=== PATIENT | male | born 1970 | race African-American/Black ===

== ENCOUNTER 2017-01-27 16:53 | Emergency (ER) | payer OTHER ==
[~2017-01-27] VITALS: Ht 177.8 cm; Wt 113.4 kg
[~2017-01-27 16:53] MED LIST: IBUPROFEN 600600 M1; OMEPRAZOLE40 MG PO; PREDNISONE 10 M10 M1 PO; PROAIR HFA8.5 GM IH; ZOFRAN ODT4 MG PO
[2017-01-27] MEDS ORDERED: ADVAIR 250-501 EACH INH (17:05)
[2017-01-27] MEDS ORDERED: VENTOLIN HFA 1818 GM INH (17:05)
[2017-01-27] MEDS ORDERED: SINGULAIR 10 MG10 M1 PO (17:05)
[2017-01-27] MEDS ORDERED: ASPIR 8181 MG PO (17:06)
[2017-01-27] MEDS ORDERED: POTASSIUM20 PO (17:06)
[2017-01-27] MEDS ORDERED: COZAAR 50 MG TA50 M2 PO (17:06)
[2017-01-27] MEDS ORDERED: CARVEDILOL12.5 MG PO (17:06)
[2017-01-27] MEDS ORDERED: LASIX 40 MG TAB40 M2 PO (17:06)
[2017-01-27] MEDS ORDERED: PREDNISONE 20 M20 MG PO (17:34)
[2017-01-27] MEDS ORDERED: ADVAIR HFA115 MCG/21 INH (17:34)
[2017-01-27] MEDS ORDERED: ALBUTEROL2.5 MG/0.5 INH (17:34)
[2017-01-27] MEDS ORDERED: PROVENTIL HFA6.7 G1 INH (17:34)
[2017-01-27 18:00] VITALS: BP 181/125
== END 2017-01-27 18:15 | disposition home or self-care (01) ==
LOC: ER 16:53
DX: J45.901 Unspecified asthma with (acute) exacerbation (principal); F10.99 Alcohol use, unspecified with unspecified alcohol-induced disorder; I10 Essential (primary) hypertension; Z88.0 Allergy status to penicillin

== ENCOUNTER 2017-03-10 11:19 | Emergency (ER) | payer OTHER ==
[~2017-03-10] VITALS: Ht 177.8 cm; Wt 108.9 kg
--- NOTE | ~2017-03-10 | EKG ---
[place] [address] [facility] [place] [address] ELECTROCARDIOGRAM REPORT Name: MARIO DOYLE Room #: ARIELA Lynch#: [id number] Admission: 03/10/17 Attend Phys: Discharge: 03/10/17 Date of : 74 Report #: [id number] THIS REPORT FOR: //name// [facility] ED Test Date: 2017-03-10 Test Time: 11:24:40 Pat Name: MARIO DOYLE Department: Room: Gender: M [employer]: MZOOK : 1970 Requested By: Cindy Guerin Order Number: [id number] MD: Aleksandr Gray Measurements Intervals Pinson Rate: 79 P: 74 IA: 203 QRS: -10 QRSD: 100 T: 147 QT: 397 QTc: 456 Interpretive Statements Sinus arrhythmia Ventricular premature complex Borderline prolonged IA interval Probable left atrial enlargement Left ventricular hypertrophy Electronically Signed On 03-15-2017 7:55:12 CDT by Aleksandr Gray [email or web address] <ELECTRONICALLY SIGNED> By: Aleksandr Gray MD 03/15/17 [id number] Aleksandr Gray MD /CHRISTINE
[~2017-03-10 11:19] MED LIST changes: +ADVAIR 250-501 EACH INH; +ADVAIR HFA115 MCG/21 INH; +ALBUTEROL2.5 MG/0.5 INH; +ASPIR 8181 MG PO; +CARVEDILOL12.5 MG PO; +COZAAR 50 MG TA50 M2 PO; +LASIX 40 MG TAB40 M2 PO; +POTASSIUM20 PO; +PREDNISONE 20 M20 MG PO; +PROVENTIL HFA6.7 G1 INH; +SINGULAIR 10 MG10 M1 PO; +VENTOLIN HFA 1818 GM INH
[2017-03-10 12:00] LABS: ABSOLUTE NEUTROPHILS 3.1 thou/uL (1.4-8.2); BASOPHILS 0.8 % (0.0-2.0); EOSINOPHILS 1.7 % (0.0-3.0); HEMATOCRIT 46.1 % (42.0-52.0); HEMOGLOBIN 15.2 gm/dL (14.0-18.0); LYMPHOCYTES 36.9 % (24.0-44.0); MCH 30.2 pg (26.0-34.0); MCV 91.7 fL (80.0-100.0); MONOCYTES 11.7 % (1.0-8.0); PLATELET COUNT 178 thou/uL (150-400); POLYS 48.9 % (36.0-66.0); RBC 5.03 mil/uL (4.50-6.00); WBC 6.4 thou/uL (4.0-11.0)
[2017-03-10 12:04] LABS: CALCIUM 9.3 mg/dL (8.5-10.1); CREATININE 1.1 mg/dL (0.7-1.3); POTASSIUM 4.2 mmol/L (3.5-5.1)
[2017-03-10 12:05] LABS: MANUAL DIFF NO
[2017-03-10 12:15] LABS: ALBUMIN 4.3 g/dL (3.4-5.0); DIRECT BILIRUBIN 0.1 mg/dL (<0.1-0.3); TOTAL BILIRUBIN 1.3 mg/dL (<0.1-1.0); TOTAL PROTEIN 8.4 g/dL (6.4-8.2)
[2017-03-10 13:36] LABS: URINE BILIRUBIN NEGATIVE (Negative); URINE BLOOD TRACE (Negative); URINE COLOR YELLOW; URINE GLUCOSE-RANDOM* NEGATIVE (Negative); URINE KETONES TRACE (Negative); URINE LEUKOCYTES-REFLEX NEGATIVE (Negative); URINE PROTEIN (DIPSTICK) 2+ (Negative); URINE SPECIFIC GRAVITY 1.025 (1.003-1.035)
[2017-03-10 13:57] LABS: CASTS None Seen /LPF (None Seen); CRYSTALS None Seen /LPF (None Seen); SQUAMOUS 0-3 Few /LPF (0-3)
[2017-03-10 13:58] LABS: URINE RBC 0-2 Rare /HPF (0-2); URINE WBC-REFLEX 0-5 Rare /HPF (0-5)
[2017-03-10] MEDS ORDERED: NORCO 5-325 TA1 EACH PO (14:39)
[2017-03-10] MEDS ORDERED: ZOFRAN ODT4 MG PO (14:39)
[2017-03-10 15:07] VITALS: BP 175/105
== END 2017-03-10 15:09 | disposition home or self-care (01) ==
LOC: ER 11:19
PROVIDERS: Emergency Medicine
DX: R10.32 Left lower quadrant pain (principal); J45.909 Unspecified asthma, uncomplicated; Z86.19 Personal history of other infectious and parasitic diseases; I11.0 Hypertensive heart disease with heart failure; I50.9 Heart failure, unspecified; Z88.0 Allergy status to penicillin; F10.99 Alcohol use, unspecified with unspecified alcohol-induced disorder